=== PATIENT | female | born 1975 | race Caucasian/White ===

== ENCOUNTER → 2017-06-17 | Outpatient (CLI) ==
[2017-06-18 02:29] LABS: T3 TOTAL 102 ng/dL (87-178)
== END ==
LOC: EDSTATUS 13:59 → LAB 16:00 → EDSTATUS 16:02
PROVIDERS: Nurse Practitioner Family
DX: I10 Essential (primary) hypertension (principal); N80.8 Other endometriosis; R53.81 Other malaise

== ENCOUNTER → 2018-11-09 | Outpatient (CLI) | payer BC | LOC: MAMMO 15:22 | DX: Z12.31 Encounter for screening mammogram for malignant neoplasm of breast (principal) ==

== ENCOUNTER → 2019-03-03 | Outpatient (CLI) | payer BC | LOC: RAD 15:41 | DX: R06.02 Shortness of breath (principal); R06.2 Wheezing ==

== ENCOUNTER → 2020-01-23 | Outpatient (CLI) | payer BC | LOC: MAMMO 08:19 | DX: Z12.31 Encounter for screening mammogram for malignant neoplasm of breast (principal) ==

== ENCOUNTER → 2020-09-24 | Outpatient (REF) | LOC: LAB 14:20 | DX: Z00.01 Encounter for general adult medical examination with abnormal findings (principal); E78.5 Hyperlipidemia, unspecified; E55.9 Vitamin D deficiency, unspecified ==

== ENCOUNTER → 2021-01-28 | Outpatient (CLI) | payer BC | LOC: MAMMO 15:15 | DX: Z12.31 Encounter for screening mammogram for malignant neoplasm of breast (principal); N64.89 Other specified disorders of breast ==

== ENCOUNTER → 2021-02-10 | Outpatient (CLI) | payer BC | LOC: MAMMO 06:30 | DX: N64.89 Other specified disorders of breast (principal) ==

== ENCOUNTER → 2021-08-11 | Outpatient (CLI) | payer BC | LOC: MAMMO 08-04 07:00 | DX: R92.8 Other abnormal and inconclusive findings on diagnostic imaging of breast (principal) ==

== ENCOUNTER → 2023-10-04 | Outpatient (REF) | payer BC | LOC: LAB 09:19 → EDSTATUS 09:20 | DX: E78.5 Hyperlipidemia, unspecified (principal); I10 Essential (primary) hypertension; E55.9 Vitamin D deficiency, unspecified ==

== ENCOUNTER → 2024-06-06 | Outpatient (CLI) | payer BC | LOC: MAMMO 07:00 | DX: R92.8 Other abnormal and inconclusive findings on diagnostic imaging of breast (principal); R51.9 Headache, unspecified ==